=== PATIENT | male | born 1955 | race Caucasian/White ===

== ENCOUNTER 2016-03-08 17:27 | Emergency (ER) | payer MEDICARE, MEDICAID ==
--- NOTE | 2016-03-08 18:16 | ED Physician Chart ---
Chief Complaint/HPI - Patient Information Date Seen:: 03/08/16 Time Seen:: 17:45 Chief Complaint:: eyebrow laceration History of Present Illness:: at 1715 fell in shower. No LOC. Acting normally for him. Allergies:: Allergies Allergy/AdvReac Type Severity Reaction Status Date / Time No Known Allergies Allergy Verified 03/08/16 17:44 Vitals:: Vital Signs - 8 hr 03/08/16 17:27 Temp 97.0 F HR 114 RR 18 BP 151/79 O2 Sat % 100 Historian:: Other (career technical education instructor) Review:: Nurse's Note Reviewed, Patient unable to respond Review of Systems - Review of Systems General/Constitutional: No fever Skin: Skin lesions Head: No headache Eyes: No loss of vision ENT: No earache Neck: No neck pain Cardio Vascular: No chest pain Pulmonary: No SOB GI: No nausea, No vomiting G/U: No dysuria Musculoskeletal: No bone or joint pain Endocrine: No polyuria Psychiatric: Other Hematopoietic: No bruising Allergic/Immuno: No urticaria Neurological: No syncope, No focal symptoms Past Medical History - Past Medical History Past Medical History: Other (severe mental retardation; non-verbal) Family History: Other (unavailable) Social History: Care Facility Surgical History: other (unavailable) Psychiatricy History: Other (severe MR) Medication: Reviewed Family Medical History - Family Member Mother History Unknown: Yes Ethnicity: Non- Living Status: Unknown Physical Exam - Physical Examination General/Constitutional: Well-developed, well-nourished, Alert Eyes: Lids, conjuctiva normal, PERRL Other Skin comments:: 4 1/2 cm right eyebrow laceration ENMT: External ears, nose nl Neck: No nuchal rigidity Respiratory: Nl effort/Exclusion, Clear to Auscultation Cardio Vascular: RRR GI: No tenderness/rebounding/guarding Extremities: No tenderness or effusion Neuro/Psych: No focal deficits Assessment Laceration Type:: Simple Prep/Irrigation:: skin cleanse betadine solution; 1% xylocaine with epi for local; sutured running 6.0 chromic and one simple 5.0 vicryl suture (because chromic suture broke). Dermabond then applied. ED Septic Shock - . Is Septic Shock (SBP<90, OR Lactate>4 mmol\L) present?: No - <6hrs of presentation: Vital Signs: Vital Signs - 8 hr 03/08/16 17:27 Temp 97.0 F HR 114 RR 18 BP 151/79 O2 Sat % 100 Reassessment (Disposition) - Reassessment Reassessment Condition:: Improved - Diagnosis Diagnosis:: 4 1/2 cm right eyebrow laceration - Aftercare/Follow up Instructions Aftercare/Follow-Up Instructions:: Refer to Discharge Instructions - Patient Disposition Discharge/Transfer:: Home Condition at Disposition:: Stable, Improved
== END 2016-03-08 18:30 | disposition home or self-care (01) ==
LOC: ER 17:27
DX: S01.111A Laceration without foreign body of right eyelid and periocular area, initial encounter (principal); W19.XXXA Unspecified fall, initial encounter; Y93.89 Activity, other specified; Y92.89 Other specified places as the place of occurrence of the external cause; Y99.8 Other external cause status
CPT/HCPCS: A4217; Z7502; Z7610